=== PATIENT | male | born 1945 | race Caucasian/White ===

== ENCOUNTER → 2018-12-28 | Day surgery (SDC) | payer OTHER ==
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
[~2018-12-28] MED LIST: ACETAMINOPHEN 1000 MG/100 ML IV ONE; ASPIRIN81 MG; DEXAMETHASONE SOD PHOS INJ 4 MG/ML VIAL ONE; EPINEPHRINE HCL 1:1000 1ML 1 MG/ML AMP ONE; FENTANYL CITRATE/PF 100MCG/2 ML INJ ONE; FINASTERIDE5 MG PO; LIDOCAINE 1% W/EPINEPHRINE 20 ML VIAL ONE; LIDOCAINE HCL 2% JELLY 5 ML TUBE ONE; LIDOCAINE HCL 2% LOCAL INJ 5 ML SDV VIAL INJ ONE; MELOXICAM7.5 MG PO; MIDAZOLAM HCL 2 MG/2 ML VIAL ONE; MONTELUKAST SOD10 MG PO; ONDANSETRON HCL INJ 2MG/ML 2ML 2 MG/ML VIAL ONE; PRO AIR; PROPOFOL IV EMULSION 10 MG/ML 20 ML VIAL ONE; ROCURONIUM BROMIDE 10 MG/ML 5ML VIAL ONE; SEVOFLURANE INHAL SOLN 250 ML PEN BTL ONE; [UNRECOGNIZED DRUG - OTHER]
--- OUTSIDE RECORDS SUMMARY | 2018-12-28 08:55 | XMS REPORT | Clinical Summary ---
Author Author [facility] Address Unknown Phone Unavailable Care Team Providers Care Spine Nurse Name Role Phone Janneth Contreras MD PCP Allergies Comments Active Allergy Reactions Severity Noted Date Prednisone Rash Low 02/18/2017 Medications End Date Status Medication Sig Dispensed Refills Start Date Active fluticasone-vilanterol Inhale 1 0 (BREO ELLIPTA) 100-25 inhalations mcg/dose blister with every device powder for morning. inhalation Active montelukast (SINGULAIR) Take 10 mg by 0 10 mg tablet mouth every morning. Active glucosamine sulfate 2KCl Take 1 tablet 0 (GLUCOSAMINE RELIEF) by mouth 1,000 mg tablet every morning. Active vitamin E 1000 UNIT Take 1,000 0 capsule Units by mouth every morning. Active Problems Problem Noted Date Multifocal pneumonia 02/19/2017 Leukemoid reaction 01/26/2017 Asthma exacerbation 01/23/2017 Pneumonia of both lower lobes due to infectious organism 01/23/2017 Overview: Added automatically from request for surgery [id number] Immunizations Name Dates Previously Given Next Due FLUCELVAX QUAD PF (0.5mL 02/19/2017 syringe) Pneumococcal Conjugate 02/19/2017 13-Valent Social History Date Tobacco Use Types Packs/Day Years Used Former Smoker Cigarettes 1 25 Smokeless Tobacco: Chew Current User Tobacco Cessation: Ready to Quit: No; Counseling Given: No Alcohol Use Drinks/Week oz/Week Comments No Sex Assigned at Date Recorded Not on file Industry Job Start Date Occupation Not on file Not on file Not on file Travel End Travel History Travel Start No recent travel history available. Last Filed Vital Signs Not on file Plan of Treatment Health Maintenance Due Date Last Done Comments COLONOSCOPY SCREENING 11/27/1997 SHINGLES VACCINES (#1) 11/27/1997 65+ PNEUMOCOCCAL VACCINE 02/19/2018 02/19/2017 (2 of 2 - PPSV23) INFLUENZA VACCINE 01/13/2019 02/19/2017 Results Not on fileafter 12/27/2017 Insurance Type Payer Benefit Subscriber ID Effective Phone Address Plan / Dates Group HMO [employer] CIGNA xxxxxxxxxxx [id number] [employer] resent NG HMO MCR ADV Advance Directives Patient has advance care planning documents, and code status on file. For more i nformation, please contact: Beck Fu [address] [place] [address] Date Inactivated Comments Code Status Date Activated 02/24/2017 12:36 AM Full Code 02/19/2017 8:07 AM Code Status decision reached by: Patient
--- NOTE | 2018-12-28 10:00 | Diagnostic Imaging Report ---
EXAMINATION: CHEST 2 VIEWS INDICATION: Pre-operative COMPARISON: None FINDINGS: TUBES and LINES: None. LUNGS: The lungs are well inflated. No focal consolidation or pulmonary edema. Mild subsegmental atelectasis at the left lung base. PLEURA: No pleural effusion or pneumothorax. HEART AND MEDIASTINUM: The cardiomediastinal silhouette is normal in size and contour. BONES AND SOFT TISSUES: No acute fracture or dislocation. UPPER ABDOMEN: No free air under the diaphragm. IMPRESSION: No focal pneumonia or pulmonary edema. Signed by: Sanaz Delong MD on 12/28/2018 9:56 AM
[2018-12-28 12:15] VITALS: BP 137/80
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
== END | disposition home or self-care (01) ==
LOC: OR 08:53
PROVIDERS: ATTEND Otolaryngology Otolaryngology/Facial Plastic Surgery
DX: S02.2XXA Fracture of nasal bones, initial encounter for closed fracture (principal); M95.0 Acquired deformity of nose; J34.89 Other specified disorders of nose and nasal sinuses; J32.0 Chronic maxillary sinusitis; S22.39XA Fracture of one rib, unspecified side, initial encounter for closed fracture; J45.909 Unspecified asthma, uncomplicated; G47.33 Obstructive sleep apnea (adult) (pediatric); F17.290 Nicotine dependence, other tobacco product, uncomplicated; W17.89XA Other fall from one level to another, initial encounter; Z79.82 Long term (current) use of aspirin
CPT/HCPCS: 21320; 30520; 71046; 88300; 93005; J0131; J0171; J1100; J2001 ×2; J2250; J2405; J2704; J3010